=== PATIENT | female | born 1970 | race African-American/Black ===

== ENCOUNTER 2018-02-19 10:52 | Emergency (ER) | payer OTHER ==
--- NOTE | 2018-02-19 12:00 | RAD ---
3 VIEWS RIGHT HAND: Date: 02/19/18 COMPARISON: None. HISTORY: Injury, trauma, pain. FINDINGS: No displaced fracture or evidence of dislocation seen. IMPRESSION: No acute osseous abnormality. POS: [facility]
== END 2018-02-19 12:05 | disposition home or self-care (01) ==
LOC: SCSER 10:52
DX: S60.011A Contusion of right thumb without damage to nail, initial encounter (principal); G43.909 Migraine, unspecified, not intractable, without status migrainosus; G47.00 Insomnia, unspecified; I10 Essential (primary) hypertension; F41.9 Anxiety disorder, unspecified; F32.9 Major depressive disorder, single episode, unspecified; Z79.01 Long term (current) use of anticoagulants; Z79.899 Other long term (current) drug therapy; W22.8XXA Striking against or struck by other objects, initial encounter

== ENCOUNTER 2024-04-04 14:01 | Outpatient (CLI) | payer BC | END 2024-04-04 14:02 | disposition home or self-care (01) | LOC: BICMAMMO 14:01 | PROVIDERS: ATTEND Family Medicine | DX: Z12.31 Encounter for screening mammogram for malignant neoplasm of breast (principal); Z80.3 Family history of malignant neoplasm of breast | CPT/HCPCS: 77063; 77067 ==